=== PATIENT | female | born 1950 ===

== ENCOUNTER 2017-03-19 07:41 | Emergency (ER) | payer MEDICARE, MEDICAID ==
[2017-03-19] MEDS ORDERED: Albuterol-Ipratrop 3 mg / 0.5 (3 ml) UD ONE ×2 (08:02→08:25)
[2017-03-19] MEDS ORDERED: Albuterol-Ipratrop 3 mg / 0.5 (3 ml) UD IH STA ×2 (08:09)
[2017-03-19 08:10] VITALS: BP 112/76; TEMP 98.5; O2SAT 99
--- NOTE | 2017-03-19 08:13 | ED PDOC ---
HPI: CCC, URI, Sore Throat Time Seen by Provider: 03/19/17 08:06 Chief Complaint (Nursing): Cough, Cold, Congestion Chief Complaint (Provider): SOB, cough History Per: Patient History/Exam Limitations: no limitations Have you had recent travel within the past 21 days to any of the following countries: [place], [place], [place] or [place]?: No Onset/Duration Of Symptoms: Days (5) Current Symptoms Are (Timing): Still Present Associated Symptoms: Cough, Sputum (white). denies: Fever Severity: Moderate Additional History Per: Patient Additional Complaint(s): The pt is a 65yo female with PMHx of HTN, DM, asthma, presents to the ED for evaluation of cough with productive white sputum for the past 5 days. Pt denies any associated fever and offers no additional medical complaints. Past Medical History Reviewed: Historical Data, Nursing Documentation, Vital Signs Vital Signs: Last Vital Signs Temp 98.5 F 03/19/17 08:21 Pulse 61 03/19/17 08:21 Resp 20 03/19/17 08:21 BP 112/76 03/19/17 08:21 Pulse Ox 99 03/19/17 08:21 - Medical History PMH: Anxiety, Asthma, Diabetes, HTN, Hypercholesterolemia, Hyperlipidemia, Hypothyroidism Denies: HIV, Chronic Kidney Disease - Family History Family History: States: Unknown Family Hx - Home Medications Home Medications: Ambulatory Orders Medication Instructions Recorded ALPRAZolam [Xanax] 0.25 mg PO DAILY 07/30/15 Aspirin [Aspirin Chewable] 81 mg PO DAILY 07/30/15 Bisoprolol [Zebeta] 5 mg PO DAILY 07/30/15 Esomeprazole Magnesium [Nexium] 40 mg PO DAILY 07/30/15 Gabapentin [Neurontin] 600 mg PO BID 07/30/15 Levetiracetam 500 mg PO BID 07/30/15 Levothyroxine Sodium [Levoxyl] 0.088 mg PO DAILY 07/30/15 Pioglitazone [Actos] 30 mg PO DAILY 07/30/15 Rosuvastatin Calcium [Crestor] 10 mg PO HS 07/30/15 Valsartan [Diovan] 160 mg PO DAILY 07/30/15 Zolpidem Tartrate [Zolpidem] 10 mg PO HS 07/30/15 Ciprofloxacin HCl [Cipro] 500 mg PO BID #0 tab 07/31/15 Dicyclomine [Bentyl] 10 mg PO QID #0 cap 07/31/15 Metronidazole [Flagyl] 500 mg PO Q8H #0 tab 07/31/15 Albuterol 0.083% [Albuterol 0.083% 2.5 mg IH Q4 #50 neb 11/10/15 Inhal Jennifer (2.5 mg/3 ml) UD] Albuterol HFA [Ventolin HFA 90 2 puff IH [id number] PRN #0 puff 11/10/15 mcg/actuation (8 g)] Methylprednisolone [Medrol Dose 4 mg PO DAILY #21 mg 11/10/15 Pack (21 tabs)] Albuterol 0.083% [Albuterol 3 ml IH Q8 #1 neb 03/19/17 Sulfate 3 Ml] Azithromycin [Zithromax] 250 mg PO DAILY #6 tab 03/19/17 Non-Formulary 1 ea .ROUTE Q6 #1 ea 03/19/17 predniSONE [predniSONE Tab] 10 mg PO TID #15 tab 03/19/17 - Allergies Allergies/Adverse Reactions: Allergies Allergy/AdvReac Type Severity Reaction Status Date / Time No Known Allergies Allergy Verified 07/30/15 14:27 Review of Systems ROS Statement: Except As Marked, All Systems Reviewed And Found Negative Constitutional: Negative for: Fever Respiratory: Positive for: Cough, Shortness of Breath, Sputum (white) Physical Exam - Reviewed Nursing Documentation Reviewed: Yes Vital Signs Reviewed: Yes - Physical Exam Appears: Positive for: Well, Non-toxic, Uncomfortable Head Exam: Positive for: ATRAUMATIC, NORMAL INSPECTION, NORMOCEPHALIC Skin: Positive for: Normal Color Eye Exam: Positive for: Normal appearance Neck: Positive for: Normal Cardiovascular/Chest: Positive for: Regular Rate, Rhythm Respiratory: Positive for: Rhonchi (scattered), Wheezing (expitory), Respiratory Distress (mild) Neurologic/Psych: Positive for: Alert, Oriented - Laboratory Results Result Diagrams: 03/19/17 08:18 03/19/17 08:18 - ECG O2 Sat by Pulse Oximetry: 99 (RA) Pulse Ox Interpretation: Normal - Progress Re-evaluation Time: 09:25 Condition: Improved Medical Decision Making Medical Decision Making: Time: 812 Impression: URI Plan: * CMP * CBC * CXR * Duoneb 3 ml INH * Solumedrol 125 mg * Reassess Scribe Attestation: Documented by Becca Sanchez acting as a scribe for Tonny Glass MD. Provider Attestation: All medical record entries made by the Scribe were at my direction and personally dictated by me. I have reviewed the chart and agree that the record accurately reflects my personal performance of the history, physical exam, medical decision making, and the department course for this patient. I have also personally directed, reviewed, and agree with the discharge instructions and disposition. Disposition - Clinical Impression Clinical Impression: Bronchitis - Patient ED Disposition Is Patient to be Admitted: No Counseled Patient/Family Regarding: Studies Performed, Diagnosis, Need For Followup, Rx Given - Disposition Referrals: Anya Hdez MD [Staff Provider] - Disposition: Routine/Home Disposition Time: 09:25 Condition: FAIR Prescriptions: Albuterol 0.083% [Albuterol Sulfate 3 Ml] 3 ml IH Q8 #1 neb Azithromycin [Zithromax] 250 mg PO DAILY #6 tab Non-Formulary 1 ea .ROUTE Q6 #1 ea predniSONE [predniSONE Tab] 10 mg PO TID #15 tab Instructions: Acute Bronchitis (ED)
[2017-03-19 08:27] VITALS: PULSE 61; RESP 20
[2017-03-19 08:39] LABS: BASO % 0.6 % (0.0-2.0); EOS # 0.5 K/uL (0.0-0.7); EOS % 7.7 % (0.0-4.0); HEMATOCRIT 37.8 % (34.0-47.0); LYMPH # 1.7 K/uL (1.0-4.3); LYMPH % 25.7 % (20.0-40.0); MEAN CORPUSCULAR HEMOGLOBIN 30.3 pg (27.0-31.0); MEAN CORPUSCULAR HGB CONC 33.6 g/dL (33.0-37.0); MEAN PLATELET VOLUME 10.3 fl (7.2-11.7); MONO # 0.9 K/uL (0.0-0.8); MONO % 13.2 % (0.0-10.0); NEUT # 3.6 K/uL (1.8-7.0); NEUT % 52.8 % (50.0-75.0); NRBC % 0.2 % (0.0-0.0); RED CELL DISTRIBUTION WIDTH 13.4 % (11.5-14.5); WHITE BLOOD COUNT 6.7 K/uL (4.8-10.8)
[2017-03-19 09:00] LABS: ALB/GLOB RATIO 1.4 (1.0-2.1); ALKALINE PHOSPHATASE 65 U/L (38-126); ALT/SGPT 34 U/L (9-52); AST/SGOT 23 U/L (14-36); BILIRUBIN,TOTAL 0.6 mg/dl (0.2-1.3); BLOOD UREA NITROGEN 25 mg/dl (7-17); CALCIUM 9.8 mg/dL (8.4-10.2); CARBON DIOXIDE 27 mmol/L (22-30); CHLORIDE 104 mmol/L (98-107); GFR AFRICAN-AMERICAN > 60; GLUCOSE,RANDOM 101 mg/dL (65-105); POTASSIUM 3.8 MMOL/L (3.6-5.0); SODIUM 141 mmol/l (132-148); TOTAL PROTEIN 7.8 G/DL (6.3-8.2)
--- NOTE | 2017-03-19 11:28 | RAD ---
HISTORY: cough COMPARISON: Comparison chest 11/10/2015 TECHNIQUE: Chest PA and lateral FINDINGS: LUNGS: No active pulmonary disease. PLEURA: No significant pleural effusion identified. No pneumothorax apparent. CARDIOVASCULAR: Borderline/mild cardiomegaly. OSSEOUS STRUCTURES: Mild multilevel degenerative spondylosis of the thoracic spine VISUALIZED UPPER ABDOMEN: Normal. OTHER FINDINGS: None. IMPRESSION: No active disease.
== END 2017-03-19 09:55 | disposition home or self-care (01) ==
LOC: H.ER 07:41
DX: J20.9 Acute bronchitis, unspecified (principal); E03.9 Hypothyroidism, unspecified; E11.9 Type 2 diabetes mellitus without complications; E78.00 Pure hypercholesterolemia, unspecified; F41.9 Anxiety disorder, unspecified; I10 Essential (primary) hypertension; J45.909 Unspecified asthma, uncomplicated; Z79.82 Long term (current) use of aspirin
CPT/HCPCS: 71020; 80053; 85025; 94150; 94640; 96374; 99283; J2930

== ENCOUNTER 2017-05-21 10:58 | Emergency (ER) | payer MEDICARE, MEDICAID ==
[2017-05-21 11:42] VITALS: BMI 27.6
--- NOTE | 2017-05-21 12:06 | ED PDOC ---
HPI: SOB/CHF/COPD Time Seen by Provider: 05/21/17 11:55 Chief Complaint (Nursing): Chest Pain History Per: Patient Onset/Duration Of Symptoms: Days (2) Current Respiratory Medications: See Home Med List Severity: Mild Associated Symptoms: denies: Fever, Chest Pain, Productive Cough Recently: Treated By A Physician Additional Complaint(s): Referred by PMD to grain oilseed or pasture grower yesterday for swelling lower ext assoc with SOB. Sxs have been ongoing x few weeks. Denies cough or chest pain. No calf pain. Past Medical History Vital Signs: Last Vital Signs Temp 98.2 F 05/21/17 11:40 Pulse 65 05/21/17 11:40 Resp 16 05/21/17 11:40 BP 145/96 H 05/21/17 11:40 Pulse Ox 99 05/21/17 12:07 - Medical History PMH: Anxiety, Asthma, Diabetes, HTN, Hypercholesterolemia, Hyperlipidemia, Hypothyroidism Denies: HIV, Chronic Kidney Disease - Family History Family History: States: Unknown Family Hx - Home Medications Home Medications: Ambulatory Orders Medication Instructions Recorded Alprazolam [Xanax] 0.5 mg PO DAILY PRN 05/21/17 Amlodipine/Valsartan 1 tab PO DAILY 05/21/17 [Amlodipine-Valsartan 5-160 mg] Bisoprolol Fumarate 5 mg PO DAILY 05/21/17 Ergocalciferol (Vitamin D2) 1 tab PO QWK 05/21/17 [Vitamin D2] Esomeprazole Magnesium [Nexium] 40 mg PO DAILY 05/21/17 Furosemide [Lasix] 20 mg PO DAILY 05/21/17 Furosemide [Lasix] 20 mg PO DAILY #3 tablet 05/21/17 Gabapentin [Neurontin] 600 mg PO TID 05/21/17 Levothyroxine [Synthroid] 100 mcg PO DAILY 05/21/17 Naproxen [Naprosyn] 500 mg PO Q12H #20 tab 05/21/17 Pioglitazone [Actos] 30 mg PO DAILY 05/21/17 Zolpidem [Ambien] 10 mg PO HS 05/21/17 - Allergies Allergies/Adverse Reactions: Allergies Allergy/AdvReac Type Severity Reaction Status Date / Time No Known Allergies Allergy Verified 07/30/15 14:27 Review of Systems ROS Statement: Except As Marked, All Systems Reviewed And Found Negative Cardiovascular: Negative for: Chest Pain Respiratory: Positive for: Shortness of Breath. Negative for: Cough Musculoskeletal: Positive for: Other (Swelling lower exts bilat.) Physical Exam - Reviewed Nursing Documentation Reviewed: Yes Vital Signs Reviewed: Yes - Physical Exam Appears: Positive for: Non-toxic, No Acute Distress Head Exam: Positive for: ATRAUMATIC, NORMAL INSPECTION, NORMOCEPHALIC Skin: Positive for: Normal Color, Warm, DRY Eye Exam: Positive for: EOMI, Normal appearance, PERRL ENT: Positive for: Normal ENT Inspection Neck: Positive for: Normal, Painless ROM Cardiovascular/Chest: Positive for: Regular Rate, Rhythm Respiratory: Positive for: CNT, Normal Breath Sounds Gastrointestinal/Abdominal: Positive for: Normal Exam, Bowel Sounds, Soft Back: Positive for: Normal Inspection Extremity: Positive for: Normal ROM, Pedal Edema (?1+ nonpitting edema bilat). Negative for: Calf Tenderness Neurologic/Psych: Positive for: Alert, Oriented - Laboratory Results Result Diagrams: 05/21/17 12:20 05/21/17 12:20 - ECG O2 Sat by Pulse Oximetry: 99 Disposition - Clinical Impression Clinical Impression: Edema extremities, Arthritis - Patient ED Disposition Is Patient to be Admitted: No - Disposition Referrals: Trevin Ramirez, SARITA, PRIMER PRESS OPERATOR [Advanced Practice Nurse] - Disposition: Routine/Home Disposition Time: 13:24 Condition: FAIR Prescriptions: Furosemide [Lasix] 20 mg PO DAILY #3 tablet Naproxen [Naprosyn] 500 mg PO Q12H #20 tab Instructions: Leg Edema (ED), Osteoarthritis (ED) Forms: [employer] (French)
[2017-05-21 12:25] LABS: BASO % 0.8 % (0.0-2.0); EOS # 0.5 K/uL (0.0-0.7); EOS % 9.1 % (0.0-4.0); HEMATOCRIT 40.2 % (34.0-47.0); LYMPH # 1.6 K/uL (1.0-4.3); LYMPH % 31.1 % (20.0-40.0); MEAN CORPUSCULAR HEMOGLOBIN 29.9 pg (27.0-31.0); MEAN CORPUSCULAR HGB CONC 32.8 g/dL (33.0-37.0); MEAN PLATELET VOLUME 10.2 fl (7.2-11.7); MONO # 0.6 K/uL (0.0-0.8); MONO % 12.4 % (0.0-10.0); NEUT # 2.3 K/uL (1.8-7.0); NEUT % 46.6 % (50.0-75.0); NRBC % 0.1 % (0.0-0.0); RED CELL DISTRIBUTION WIDTH 13.7 % (11.5-14.5)
[2017-05-21 12:34] LABS: ALB/GLOB RATIO 1.5 (1.0-2.1); ALKALINE PHOSPHATASE 57 U/L (38-126); ALT/SGPT 36 U/L (9-52); AST/SGOT 24 U/L (14-36); BILIRUBIN,TOTAL 0.4 mg/dl (0.2-1.3); BLOOD UREA NITROGEN 19 mg/dl (7-17); CALCIUM 9.9 mg/dL (8.4-10.2); CARBON DIOXIDE 28 mmol/L (22-30); CHLORIDE 106 mmol/L (98-107); GFR AFRICAN-AMERICAN > 60; GLUCOSE,RANDOM 146 mg/dL (65-105); SODIUM 142 mmol/l (132-148); TOTAL PROTEIN 7.3 G/DL (6.3-8.2)
[2017-05-21 14:45] VITALS: BP 122/78; PULSE 79; RESP 17; TEMP 96.7; O2SAT 98
--- NOTE | 2017-05-21 15:06 | RAD ---
HISTORY: SOB COMPARISON: No prior. TECHNIQUE: Chest PA and lateral FINDINGS: LUNGS: No active pulmonary disease. PLEURA: No significant pleural effusion identified. No pneumothorax apparent. CARDIOVASCULAR: Normal. OSSEOUS STRUCTURES: No significant abnormalities. VISUALIZED UPPER ABDOMEN: Normal. OTHER FINDINGS: None. IMPRESSION: No active disease.
--- NOTE | 2017-05-22 09:44 | RAD ---
HISTORY: pain COMPARISON: No prior FINDINGS: BONES: Normal. No fracture. JOINTS: Normal. No osteoarthritis. SOFT TISSUE: Normal. OTHER FINDINGS: None . IMPRESSION: Normal Bone Xray.
--- NOTE | 2017-05-22 13:18 | CARD ---
APPROVED REPORT EKG Measurement Heart [id number] <Conclusion> Normal sinus rhythm Possible Left atrial enlargement Borderline ECG
== END 2017-05-21 14:45 | disposition home or self-care (01) ==
LOC: H.ER 10:58
DX: R60.0 Localized edema (principal); M19.90 Unspecified osteoarthritis, unspecified site; E03.9 Hypothyroidism, unspecified; E11.9 Type 2 diabetes mellitus without complications; E78.00 Pure hypercholesterolemia, unspecified; F41.9 Anxiety disorder, unspecified; I10 Essential (primary) hypertension

== ENCOUNTER 2018-03-18 16:20 | Observation (INO) | payer MEDICARE, MEDICAID ==
[2018-03-18 16:21] VITALS: BMI 27.6
[2018-03-18] MEDS ORDERED: Sodium Chloride 0.9% 1,000 ML IV STA (16:55)
[2018-03-18] MEDS ORDERED: Famotidine 20mg/50ml 20 MG/50 ML BAG IVPB ONE ×3 (17:15→22:12)
--- NOTE | 2018-03-18 17:22 | ED PDOC ---
HPI: Abdomen Time Seen by Provider: 03/18/18 16:50 Chief Complaint (Nursing): GI Problem Chief Complaint (Provider): GI Problem History Per: Patient History/Exam Limitations: no limitations Onset/Duration Of Symptoms: Days (x3 weeks) Current Symptoms Are (Timing): Still Present Additional Complaint(s): 67 year old female presents to the emergency department complaining of diarrhea , described as loose, watery, at a times containing black or yellow substances, onset three weeks ago. Patient states having five episodes of this nearly daily , making her lose her appetite and feel like she has lost weight. She denies any gross bleeding but does also notes one episode of vomiting with intermittent nausea over the last three weeks. Reports seeing Dr. Ramirez, her PCP, on March 09, who referred her to a GI doctor the same day; he gave her cipro and flagyl to which she states have not helped with her underlying symptoms. Positive reports of intermittent chills, but no fever or sweats. States she has occasional chest pain with pressure, mild shortness of breath, but no palpitations. Also notes mild abdominal discomfort and cramps, but denies urinary changes. No fall, trauma, sick contact, or travel. Today, patient felt as if she was going to pass out, so she contacted her granddaughter who brought her in for further evaluation. No other complaints were noted. pt denied fall/trauma/sick contact, or travel recently PMD: Trevin Ramirez; [facility] GI: Dr Mckenna? Past Medical History Reviewed: Historical Data, Nursing Documentation, Vital Signs Vital Signs: Last Vital Signs Temp 97.9 F 03/18/18 16:29 Pulse 85 03/18/18 16:29 Resp 18 03/18/18 16:29 BP 148/85 03/18/18 16:29 Pulse Ox 100 03/18/18 19:44 - Medical History PMH: Anxiety, Asthma, Diabetes, HTN, Hypercholesterolemia, Hyperlipidemia, Hypothyroidism Denies: HIV, Chronic Kidney Disease - Surgical History Other surgeries: tubal ligation - Family History Family History: States: Unknown Family Hx - Living Arrangements Living Arrangements: Alone (primarily) - Social History Current smoker - smoking cessation education provided: No Ex-Smoker (has not smoked in the last 12 months): No Alcohol: None Drugs: Denies - Home Medications Home Medications: Ambulatory Orders Medication Instructions Recorded Alprazolam [Xanax] 0.5 mg PO DAILY PRN 05/21/17 Amlodipine/Valsartan 1 tab PO DAILY 05/21/17 [Amlodipine-Valsartan 5-160 mg] Bisoprolol Fumarate 5 mg PO DAILY 05/21/17 Ergocalciferol (Vitamin D2) 1 tab PO QWK 05/21/17 [Vitamin D2] Esomeprazole Magnesium [Nexium] 40 mg PO DAILY 05/21/17 Furosemide [Lasix] 20 mg PO DAILY 05/21/17 Furosemide [Lasix] 20 mg PO DAILY #3 tablet 05/21/17 Gabapentin [Neurontin] 600 mg PO TID 05/21/17 Levothyroxine [Synthroid] 100 mcg PO DAILY 05/21/17 Naproxen [Naprosyn] 500 mg PO Q12H #20 tab 05/21/17 Pioglitazone [Actos] 30 mg PO DAILY 05/21/17 Zolpidem [Ambien] 10 mg PO HS 05/21/17 - Allergies Allergies/Adverse Reactions: Allergies Allergy/AdvReac Type Severity Reaction Status Date / Time No Known Allergies Allergy Verified 03/18/18 16:29 Review of Systems ROS Statement: Except As Marked, All Systems Reviewed And Found Negative Constitutional: Positive for: Chills (intermittent), Weight loss (and loss of appetite). Negative for: Fever, Sweats, Other (fall or trauma) ENT: Negative for: Ear Pain Cardiovascular: Positive for: Chest Pain (occasional, with pressure). Negative for: Palpitations Respiratory: Positive for: Shortness of Breath (mild) Gastrointestinal: Positive for: Nausea (intermittent), Vomiting (x1 episode), Abdominal Pain (mild with cramps), Diarrhea (loose, watery, at a times containing black or yellow substances). Negative for: Other (gross bleeding) Genitourinary Female: Negative for: Dysuria, Frequency, Incontinence Musculoskeletal: Negative for: Neck Pain, Back Pain Skin: Negative for: Rash Neurological: Positive for: Weakness, Headache, Dizziness Psych: Negative for: Anxiety, Depression Physical Exam - Reviewed Nursing Documentation Reviewed: Yes Vital Signs Reviewed: Yes (mildly elevated BP) - Physical Exam Comments: General: alert/awake, GCS = 15, oriented x 3, resting in bed, uncomfortable, cooperative, interactive; NAD Head: NC/AT; mild bi-temporal wasting EYE: PERRLA, EOMI, sclera anicteric, no nystagmus, no photophobia; visual field intact b/l Facial: WNL Oral: uvula/tongue are midline, no exudate/lesions, no drooling/stridor, no dysphonia; fair dentitions; mild dry oral mucosa NECK: intact ROM, no midline tenderness, no nuchal rigidity, no meningeal signs ; no step off Chest: CTA b/l, no w/r/r; no tachypenia, no accessory muscle use noted Cardiac: +S1, +S2, no m/r/r, no tachycardia Abdominal: +BS, soft/nd, mild diffuse mid-abd tenderness, well nourished patient ; no masses/rebound/guarding/rigidity; no gunderson's sign, no mcburney's point tenderness Extremities: intact ROM, strength 5/5 grossly intact in all limbs, neurovasc intact b/l; + ambulatory; reflex +2/2; No pitting edema noted b/l BACK: no step off, no midline tenderness, NO crepitus, no gross deformities noted; Intact ROM SKIN: cap refill ~ 1 sec, no ulcerations, no petechiae, no rashes; no gross pallor NEURO: CNII-XII WNL, no facial asymmetries, no slurr speech, oriented x 3 NIH stroke scale ~ 0 Psych: normal insight, normal affect; follows command with ease - Laboratory Results Result Diagrams: 03/18/18 17:40 03/18/18 17:40 Interpretation Of Abnormal: mildly elevated GLUC - ECG ECG: Positive for: Interpreted By Me, Viewed By Me Interpretation Of ECG: NSR at70 bpm, normal axis, no ectopy, non-specific st-t changes, ABNL EKG; unchanged compare with old ekg 04/2017 O2 Sat by Pulse Oximetry: 100 (RA) Pulse Ox Interpretation: Normal - Radiology X-Ray: Interpreted by Me, Viewed By Me, Read By Radiologist - Other Rad Chest XR X-Ray: Interpreted by Me, Viewed By Me X-Ray Interpretation: 18:30 No acute disease. No free air. - Progress ED Course And Treament: 7:05pm - pt is currently comfortable, NAD pt is made aware of her lab tests results pt is awaiting her CT results vital signs remained stable 7:15pm - Pt is endorsed to overnight attending, Dr Oakes, awaiting pt's CT results, pt can be dispositioned accordingly Re-evaluation Time: 19:15 Condition: Improved Medical Decision Making Medical Decision Making: Time: 16:55 Initial Impression: Persistent diarrhea with abdominal pain, r/o colitis / diverticulitis, possible food intolerance, r/o electrolyte derangement Initial Plan: --VBG Shock Panel --Abd/Pelv IV contrast CT --EKG --CMP --Lipase --Trop 1 --CBC with differential --Chest XR --Morphine 4mg IVP --Sodium Chloride 0.9% 1000ml IV --Pepcid 20mg in 50ml --Reglan 10mg IVP --Stool Culture --C Diff Toxin A B --Urinalysis --Observe --Supportive care Scribe Attestation: Documented by Gabrielle Hernandes, acting as a scribe for Jose Gold MD. Provider Scribe Attestation: All medical record entries made by the Scribe were at my direction and personally dictated by me. I have reviewed the chart and agree that the record accurately reflects my personal performance of the history, physical exam, medical decision making, and the department course for this patient. I have also personally directed, reviewed, and agree with the discharge instructions and disposition. Disposition - Clinical Impression Clinical Impression: Diarrhea, Weakness, Dehydration, Malaise and fatigue - Patient ED Disposition Is Patient to be Admitted: Transfer of Care (endorsed to Dr Laisha Oakes) Counseled Patient/Family Regarding: Studies Performed, Diagnosis, Rx Given - Disposition Referrals: Trevin Ramirez, SARITA, CLIENT PORTFOLIO MANAGER [Advanced Practice Nurse] - [email or web address] [place] [Outside] [employer] [Outside] [facility] [Outside] Disposition: Transfer of Care Disposition Time: 19:30 Condition: STABLE Instructions: Weakness (ED) Forms: [facility] (Moroccan) Print Language: TURKMEN
[2018-03-18 17:51] LABS: BASO # 0.1 K/uL (0.0-0.2); EOS # 0.2 K/uL (0.0-0.7); EOS % 2.5 % (0.0-4.0); HEMOGLOBIN 13.8 g/dL (12.0-16.0); LYMPH # 1.2 K/uL (1.0-4.3); LYMPH % 15.8 % (20.0-40.0); MEAN CELL VOLUME 89.6 fl (81.0-99.0); MEAN CORPUSCULAR HGB CONC 33.5 g/dL (33.0-37.0); MEAN PLATELET VOLUME 9.9 fl (7.2-11.7); MONO # 0.6 K/uL (0.0-0.8); MONO % 8.3 % (0.0-10.0); NEUT # 5.5 K/uL (1.8-7.0); NEUT % 72.4 % (50.0-75.0); NRBC % 0.1 % (0.0-0.0); RBC 4.58 Mil/uL (3.80-5.20); RED CELL DISTRIBUTION WIDTH 13.3 % (11.5-14.5); WHITE BLOOD COUNT 7.7 K/uL (4.8-10.8)
[2018-03-18 17:51] LABS: VENOUS BLOOD GAS BASE EXCESS 8.7 mmol/L (0.0-2.0); VENOUS BLOOD GAS PCO2 54 mmHg (40-60); VENOUS BLOOD GAS PO2 28 mm/Hg (30-55); VENOUS BLOOD PH 7.42 (7.32-7.43)
[2018-03-18 17:58] LABS: ALB/GLOB RATIO 1.2 (1.0-2.1); ALBUMIN 4.4 g/dL (3.5-5.0); ALT/SGPT 89 U/L (9-52); AST/SGOT 71 U/L (14-36); BLOOD UREA NITROGEN 19 mg/dl (7-17); CALCIUM 9.6 mg/dL (8.4-10.2); GFR AFRICAN-AMERICAN > 60; GFR NON-AFRICAN AMERICAN > 60; LIPASE 88 U/L (23-300)
[2018-03-18 18:08] LABS: SQUAMOUS EPITHIAL < 1 /hpf (0-5); URINE BILIRUBIN NEGATIVE (NEGATIVE); URINE BLOOD NEGATIVE (NEGATIVE); URINE CLARITY CLEAR (Clear); URINE COLOR STRAW (YELLOW); URINE GLUCOSE (UA) NEG (Normal); URINE LEUKOCYTE ESTERASE TRACE Leu/uL (Negative); URINE PROTEIN NEGATIVE (NEGATIVE); URINE UROBILINOGEN 0.2-1.0 mg/dL (0.2-1.0)
[2018-03-18] MEDS ORDERED: Sodium Chloride 0.9% 50 ML IV ONE (18:25)
[2018-03-18] MEDS ORDERED: Iohexol 300 100 ML IJ ONE (18:25)
--- NOTE | 2018-03-18 19:19 | ED PDOC ---
- Laboratory Results Result Diagrams: 03/18/18 17:40 03/18/18 17:40 - ECG O2 Sat by Pulse Oximetry: 100 (RA) Medical Decision Making Medical Decision Makin:00 Transfer of care endorsed from Dr. Jose Gold to Dr. Jose Enrique Flanagan pending CT results and reevaluation. Time: 19:51 CT Abd/Pelvis FINDINGS: Lower thorax: No pulmonary airspace consolidation or pleural fluid collection in the imaged portion of the thorax. ABDOMEN: Liver: No acute findings. Gallbladder and bile ducts: No acute findings. No radiopaque gallstones or pericholecystic inflammatory changes. No biliary ductal dilation. Pancreas: No acute findings. Spleen: No acute findings. Adrenals: Redemonstrated fluid attenuation left adrenal lesion with peripheral calcification, now measuring 2.3 x 1.8 cm in maximal axial dimensions compared to 2.9 x 2.2 cm on the prior study. The right adrenal gland is normal in appearance. Kidneys and ureters: No acute findings. Stomach and bowel: Moderate amount of fluid in the colon from the cecum through the distal descending colon. The sigmoid colon is essentially nondistended. No colonic wall thickening or pericolonic fat stranding. Redemonstrated colonic diverticulosis without evidence of acute diverticulitis. No evident acute abnormality of the stomach or small bowel. No bowel obstruction. Appendix: The appendix is not identified. No findings suggestive of acute appendicitis. PELVIS: Bladder: No acute findings. Reproductive: No evident acute abnormality of the gynecologic structures. ABDOMEN and PELVIS: Intraperitoneal space: No free intraperitoneal fluid or air. Bones/joints: No acute findings. Soft tissues: Redemonstrated tiny, fat-containing umbilical hernia with no associated complications. Vasculature: No acute findings. No abdominal aortic aneurysm. Lymph nodes: No enlarged abdominal or pelvic lymph nodes by CT criteria. IMPRESSION: 1. A moderate amount of fluid in the colon is consistent with diarrhea. No other evident acute abnormality of the bowel. 2. Interval decreased size of a peripherally calcified, fluid attenuation left adrenal lesion, consistent with a benign entity. 3. Additional redemonstrated and non-acute findings as described above. 21:00 Pt reporting persistent crampy pain and diarrhea as well as weakness. Due to lengthy duration of symptoms and lack of improvements, patient placed on Observation status; D/W Trevin Ramirez at [facility]. DX: dehydration and gastroenteritis. Scribe Attestation: Documented by Gabrielle Hernandes, acting as a scribe for Jose Enrique Flanagan MD. Provider Scribe Attestation: All medical record entries made by the Scribe were at my direction and personally dictated by me. I have reviewed the chart and agree that the record accurately reflects my personal performance of the history, physical exam, medical decision making, and the department course for this patient. I have also personally directed, reviewed, and agree with the discharge instructions and disposition. Disposition Counseled Patient/Family Regarding: Studies Performed, Diagnosis, Need For Followup - Clinical Impression Clinical Impression: Diarrhea, Weakness, Dehydration, Malaise and fatigue - POA Present On Arrival: None - Disposition Disposition: Hospitalized as Observation Patient Disposition Time: 21:00 Condition: FAIR
[2018-03-18] MEDS ORDERED: Ergocalciferol 50,000 Intl Units Cap PO SCH (21:30)
[2018-03-18] MEDS: Lactated Ringer's 1,000 ML IV SCH (22:02)
[2018-03-18] MEDS: Famotidine 20mg/50ml 20 MG/50 ML BAG IVPB SCH (22:18)
[2018-03-19] MEDS: Lactated Ringer's 1,000 ML IV SCH ×2 (06:16→21:32)
[2018-03-19] MEDS: Levothyroxine 100 MCG TAB PO SCH (06:23)
[2018-03-19 07:18] LABS: BASO # 0.1 K/uL (0.0-0.2); BASO % 0.8 % (0.0-2.0); EOS # 0.5 K/uL (0.0-0.7); HEMOGLOBIN 12.8 g/dL (12.0-16.0); LYMPH % 27.3 % (20.0-40.0); MEAN CELL VOLUME 89.9 fl (81.0-99.0); MEAN CORPUSCULAR HEMOGLOBIN 30.3 pg (27.0-31.0); MEAN CORPUSCULAR HGB CONC 33.7 g/dL (33.0-37.0); MEAN PLATELET VOLUME 10.3 fl (7.2-11.7); MONO # 0.8 K/uL (0.0-0.8); MONO % 10.8 % (0.0-10.0); NEUT % 54.1 % (50.0-75.0); NRBC % 0.1 % (0.0-0.0); RBC 4.23 Mil/uL (3.80-5.20); RED CELL DISTRIBUTION WIDTH 13.5 % (11.5-14.5); WHITE BLOOD COUNT 7.5 K/uL (4.8-10.8)
[2018-03-19 07:35] LABS: ALB/GLOB RATIO 1.2 (1.0-2.1); ALT/SGPT 80 U/L (9-52); AST/SGOT 59 U/L (14-36); BLOOD UREA NITROGEN 11 mg/dl (7-17); CALCIUM 9.2 mg/dL (8.4-10.2); GFR AFRICAN-AMERICAN > 60; GFR NON-AFRICAN AMERICAN > 60
[2018-03-19] MEDS ORDERED: Potassium Chloride 20 mEq ER Tab PO ONE (08:15)
[2018-03-19 08:18] VITALS: RESP 18
--- NOTE | 2018-03-19 08:18 | CP.PCM.HP ---
History of Present Illness - History of Present Illness History of Present Illness: pt admitted for persistent vomiting and fatigue, no f/c, + n/v/d. no pain. bw noted. k repletement ordered, pt was tx outpt for colitis w/ cipro/flagyl. saw dr hector-GI cdiff negative. pt feels weak. clifford small amts of po Present on Admission - Present on Admission Any Indicators Present on Admission: No Review of Systems - Constitutional Constitutional: Fatigue - Gastrointestinal Gastrointestinal: As Per HPI, Abdominal Pain, Diarrhea, Nausea, Vomiting Past Patient History - Past Medical History & Family History Past Medical History?: Yes - Past Social History Smoking Status: Never Smoked - CARDIAC Hx Cardiac Disorders: Yes Hx Hypercholesterolemia: Yes Hx Hypertension: Yes - PULMONARY Hx Respiratory Disorders: Yes Hx Asthma: Yes - NEUROLOGICAL Hx Neurological Disorder: No - HEENT Hx HEENT Problems: No - RENAL Hx Chronic Kidney Disease: No - ENDOCRINE/METABOLIC Hx Endocrine Disorders: Yes Hx Diabetes Mellitus Type 2: Yes Hx Hypothyroidism: Yes - HEMATOLOGICAL/ONCOLOGICAL Hx Blood Disorders: No Hx AIDS: No Hx Human Immunodeficiency Virus (HIV): No - INTEGUMENTARY Hx Dermatological Problems: No - MUSCULOSKELETAL/RHEUMATOLOGICAL Hx Musculoskeletal Disorders: No Hx Falls: No - GASTROINTESTINAL Hx Gastrointestinal Disorders: Yes Other/Comment: recent dx of diverticulitis, H Pylori - GENITOURINARY/GYNECOLOGICAL Hx Genitourinary Disorders: No - PSYCHIATRIC Hx Psychophysiologic Disorder: Yes Hx Anxiety: Yes Hx Substance Use: No - SURGICAL HISTORY Hx Surgeries: Yes Hx Tubal Ligation: Yes - ANESTHESIA Hx Anesthesia: Yes Hx Anesthesia Reactions: No Meds Allergies/Adverse Reactions: Allergies Allergy/AdvReac Type Severity Reaction Status Date / Time No Known Allergies Allergy Verified 03/18/18 16:29 Physical Exam - Constitutional Appears: Well, Non-toxic, No Acute Distress - Head Exam Head Exam: ATRAUMATIC, NORMAL INSPECTION, NORMOCEPHALIC - Eye Exam Eye Exam: EOMI, Normal appearance, PERRL Pupil Exam: NORMAL ACCOMODATION, PERRL - ENT Exam ENT Exam: Mucous Membranes Moist, Normal Exam - Neck Exam Neck exam: Positive for: Normal Inspection - Respiratory Exam Respiratory Exam: Clear to Auscultation Bilateral, NORMAL BREATHING PATTERN - Cardiovascular Exam Cardiovascular Exam: REGULAR RHYTHM, RRR, +S1, +S2 - GI/Abdominal Exam GI & Abdominal Exam: Normal Bowel Sounds, Soft, Tenderness Additional comments: ruq tenderness - Extremities Exam Extremities exam: Positive for: full ROM, normal capillary refill, normal inspection, pedal pulses present - Back Exam Back exam: NORMAL INSPECTION - Neurological Exam Neurological exam: Alert, CN II-XII Intact, Normal Gait, Oriented x3, Reflexes Normal - Psychiatric Exam Psychiatric exam: Normal Affect, Normal Mood - Skin Skin Exam: Dry, Intact, Normal Color, Warm Results - Vital Signs Recent Vital Signs: Last Vital Signs Temp 97.6 F 03/18/18 23:28 Pulse 60 03/18/18 23:28 Resp 20 03/18/18 23:28 BP 149/79 03/18/18 23:28 Pulse Ox 100 03/19/18 01:20 - Labs Result Diagrams: 03/19/18 05:30 03/19/18 05:30 Labs: Laboratory Results - last 24 hr 03/18/18 03/18/18 03/18/18 17:00 17:40 17:40 WBC 7.7 D RBC 4.58 Hgb 13.8 Hct 41.1 MCV 89.6 MCH 30.0 MCHC 33.5 RDW 13.3 Plt Count 168 MPV 9.9 Neut % (Auto) 72.4 Lymph % (Auto) 15.8 L [place] % (Auto) 8.3 Eos % (Auto) 2.5 Baso % (Auto) 1.0 Neut # (Auto) 5.5 Lymph # (Auto) 1.2 [place] # (Auto) 0.6 Eos # (Auto) 0.2 Baso # (Auto) 0.1 pO2 28 L VBG pH 7.42 VBG pCO2 54 VBG HCO3 30.5 VBG Total CO2 36.7 H VBG O2 Sat (Calc) 56.6 VBG Base Excess 8.7 H VBG Potassium 3.5 L Sodium 141.0 144 Chloride 104.0 100 Glucose 131 H Lactate 1.2 FiO2 21.0 Potassium 3.6 Carbon Dioxide 29 Anion Gap 19 BUN 19 H Creatinine 0.6 L Est GFR ( Amer) > 60 Est GFR (Non-Af Amer) > 60 POC Glucose (mg/dL) Random Glucose 128 H Calcium 9.6 Total Bilirubin 0.4 AST 71 H D ALT 89 H D Alkaline Phosphatase 81 Troponin I < 0.0120 Total Protein 8.0 Albumin 4.4 Globulin 3.6 Albumin/Globulin Ratio 1.2 Lipase 88 Venous Blood Potassium 3.5 L Urine Color Urine Clarity Urine pH Ur Specific [place] Urine Protein Urine Glucose (UA) Urine Ketones Urine Blood Urine Nitrate Urine Bilirubin Urine Urobilinogen Ur Leukocyte Esterase Urine RBC (Auto) Urine Microscopic WBC Ur Squamous Epith Cells 03/18/18 03/19/18 03/19/18 17:50 05:30 05:30 WBC 7.5 RBC 4.23 Hgb 12.8 Hct 38.1 MCV 89.9 MCH 30.3 MCHC 33.7 RDW 13.5 Plt Count 165 MPV 10.3 Neut % (Auto) 54.1 Lymph % (Auto) 27.3 [place] % (Auto) 10.8 H Eos % (Auto) 7.0 H Baso % (Auto) 0.8 Neut # (Auto) 4.0 Lymph # (Auto) 2.0 [place] # (Auto) 0.8 Eos # (Auto) 0.5 Baso # (Auto) 0.1 pO2 VBG pH VBG pCO2 VBG HCO3 VBG Total CO2 VBG O2 Sat (Calc) VBG Base Excess VBG Potassium Sodium 144 Chloride 100 Glucose Lactate FiO2 Potassium 2.9 L Carbon Dioxide 31 H Anion Gap 16 BUN 11 Creatinine 0.6 L Est GFR ( Amer) > 60 Est GFR (Non-Af Amer) > 60 POC Glucose (mg/dL) Random Glucose 116 H Calcium 9.2 Total Bilirubin 0.5 AST 59 H ALT 80 H Alkaline Phosphatase 74 Troponin I Total Protein 7.3 Albumin 4.0 Globulin 3.3 Albumin/Globulin Ratio 1.2 Lipase Venous Blood Potassium Urine Color Straw Urine Clarity Clear Urine pH 7.0 Ur Specific [place] 1.005 Urine Protein Negative Urine Glucose (UA) Neg Urine Ketones Negative Urine Blood Negative Urine Nitrate Negative Urine Bilirubin Negative Urine Urobilinogen 0.2-1.0 Ur Leukocyte Esterase Trace Urine RBC (Auto) 1 Urine Microscopic WBC 1 Ur Squamous Epith Cells < 1 03/19/18 05:36 WBC RBC Hgb Hct MCV MCH MCHC RDW Plt Count MPV Neut % (Auto) Lymph % (Auto) [place] % (Auto) Eos % (Auto) Baso % (Auto) Neut # (Auto) Lymph # (Auto) [place] # (Auto) Eos # (Auto) Baso # (Auto) pO2 VBG pH VBG pCO2 VBG HCO3 VBG Total CO2 VBG O2 Sat (Calc) VBG Base Excess VBG Potassium Sodium Chloride Glucose Lactate FiO2 Potassium Carbon Dioxide Anion Gap BUN Creatinine Est GFR ( Amer) Est GFR (Non-Af Amer) POC Glucose (mg/dL) 101 Random Glucose Calcium Total Bilirubin AST ALT Alkaline Phosphatase Troponin I Total Protein Albumin Globulin Albumin/Globulin Ratio Lipase Venous Blood Potassium Urine Color Urine Clarity Urine pH Ur Specific [place] Urine Protein Urine Glucose (UA) Urine Ketones Urine Blood Urine Nitrate Urine Bilirubin Urine Urobilinogen Ur Leukocyte Esterase Urine RBC (Auto) Urine Microscopic WBC Ur Squamous Epith Cells Assessment & Plan (1) Colitis Assessment and Plan: gi pt already completed course of anbx po as clifford paina nd nausea control ivf Status: Acute (2) Dehydration Assessment and Plan: lr monitor bw Status: Acute (3) DVT prophylaxis Assessment and Plan: scd nad ae hose ambulation Status: Acute (4) Hypokalemia Assessment and Plan: k replacement monitor bw Status: Acute Decision To Admit - Pt Status Changed To: Hospital Disposition Of: Observation - . Bed Request Type: Med/Surg Admitting Physician: Anya Hdez
--- NOTE | 2018-03-19 08:48 | RAD ---
HISTORY: COMPARISON: 05/21/2017. TECHNIQUE: Chest PA and lateral FINDINGS: LINES AND TUBES: None. LUNG AND PLEURA: The lungs are well inflated and clear. No pleural effusion or pneumothorax. HEART AND MEDIASTINUM: The heart is not enlarged. The hilar and mediastinal contours are within normal limits. SKELETAL STRUCTURES: The bony structures are within normal limits for the patient's age. VISUALIZED UPPER ABDOMEN: Normal. OTHER FINDINGS: None. IMPRESSION: No active pulmonary disease.
[2018-03-19] MEDS ORDERED: VALSARTAN PO SCH (09:00)
[2018-03-19] MEDS ORDERED: AMLODIPINE PO SCH (09:00)
[2018-03-19] MEDS: Famotidine 20mg/50ml 20 MG/50 ML BAG IVPB SCH (09:05)
[2018-03-19] MEDS: Potassium CL 10mEq/100ml 100 ML IVPB SCH ×2 (09:58→13:36)
--- NOTE | 2018-03-19 12:48 | CT ---
PROCEDURE: CT Abdomen and Pelvis with contrast HISTORY: Mid abdominal pain, n/v, persistent diarrhea x 3 weeks COMPARISON: 07/30/2015. TECHNIQUE: CT scan of the abdomen and pelvis was performed after administration of intravenous contrast. Oral contrast was not administered. Coronal and sagittal reformatted images were obtained. Contrast dose: 98 cc Omnipaque 300 Radiation dose: Total exam DLP = 632.32 mGy-cm. This CT exam was performed using one or more of the following dose reduction techniques: Automated exposure control, adjustment of the mA and/or kV according to patient size, and/or use of iterative reconstruction technique. FINDINGS: LOWER THORAX: The visualized lungs are clear. LIVER: The liver is normal in size and there is diffuse fatty infiltration. No gross lesion or ductal dilatation. GALLBLADDER AND BILE DUCTS: No calcified gallstones. PANCREAS: Normal in size with homogeneous enhancement. No gross lesion or ductal dilatation. SPLEEN: Normal in size and appearance. ADRENALS: The right adrenal gland is normal. There is redemonstration of a 2.4 cm low-density mass with peripheral calcification in the lateral limb of the left adrenal gland. KIDNEYS AND URETERS: Normal in size with homogeneous enhancement. No hydronephrosis. No solid mass. VASCULATURE: No aortic aneurysm. BOWEL: The small bowel loops are normal in caliber. There is fluid in the colon with mild dilatation of the ascending and transverse colon. No bowel obstruction. APPENDIX: Normal appendix. PERITONEUM: No free fluid. No free air. LYMPH NODES: No enlarged lymph nodes. BLADDER: Grossly normal in appearance. REPRODUCTIVE: The uterus is normal in size. BONES: No acute fracture. Multilevel degenerative changes in the spine. OTHER FINDINGS: None. IMPRESSION: 1. Fluid in the colon with mild dilatation of the ascending and transverse colon most compatible with nonspecific colitis. No evidence of bowel obstruction. 2. Redemonstration of benign left adrenal mass. A preliminary report was provided by [facility].
--- NOTE | 2018-03-19 14:55 | CARD ---
APPROVED REPORT EKG Measurement Heart [id number] NE 140P47 [id number] <Conclusion> Normal sinus rhythm Possible Left atrial enlargement Nonspecific ST and T wave abnormality Abnormal ECG
[2018-03-20] MEDS: Levothyroxine 100 MCG TAB PO SCH (05:43)
[2018-03-20] MEDS: Lactated Ringer's 1,000 ML IV SCH (06:00)
[2018-03-20 08:24] VITALS: BP 129/73; PULSE 58; TEMP 98.5; O2SAT 96
[2018-03-20 09:22] LABS: BASO # 0.1 K/uL (0.0-0.2); BASO % 0.8 % (0.0-2.0); EOS # 0.4 K/uL (0.0-0.7); EOS % 6.8 % (0.0-4.0); LYMPH % 30.8 % (20.0-40.0); MEAN CELL VOLUME 89.6 fl (81.0-99.0); MEAN CORPUSCULAR HEMOGLOBIN 30.5 pg (27.0-31.0); MEAN PLATELET VOLUME 10.5 fl (7.2-11.7); MONO # 0.6 K/uL (0.0-0.8); MONO % 9.9 % (0.0-10.0); NEUT # 3.4 K/uL (1.8-7.0); NEUT % 51.7 % (50.0-75.0); NRBC % 0.1 % (0.0-0.0); RBC 4.25 Mil/uL (3.80-5.20); RED CELL DISTRIBUTION WIDTH 13.7 % (11.5-14.5); WHITE BLOOD COUNT 6.6 K/uL (4.8-10.8)
--- NOTE | 2018-03-20 09:30 | CP.PCM.PN ---
Subjective - Date & Time of Evaluation Date of Evaluation: 03/20/18 Time of Evaluation: 09:30 Objective - Vital Signs/Intake and Output Vital Signs (last 24 hours): Temp Pulse Resp BP Pulse Ox 98.5 F 58 L 18 129/73 96 03/20/18 08:23 03/20/18 08:23 03/20/18 08:23 03/20/18 08:23 03/20/18 08:23 - Medications Medications: Current Medications Alprazolam (Xanax) 0.5 mg PO DAILY PRN PRN Reason: Anxiety Last Admin: 03/19/18 09:58 Dose: 0.5 mg Amlodipine Besylate (Norvasc) 5 mg PO DAILY [facility] Last Admin: 03/20/18 08:51 Dose: 5 mg Bisoprolol Fumarate (Zebeta) 5 mg PO DAILY [facility] Last Admin: 03/20/18 08:51 Dose: 5 mg Dicyclomine HCl (Bentyl) 20 mg PO TID [facility] Last Admin: 03/20/18 08:47 Dose: 20 mg Ergocalciferol (Drisdol 50,000 Intl Units Cap) 1 cap PO QWK [facility] Famotidine (Pepcid) 20 mg PO Q12 [facility] Last Admin: 03/20/18 08:51 Dose: 20 mg Gabapentin (Neurontin) 600 mg PO TID [facility] Last Admin: 03/20/18 08:48 Dose: Not Given Lactated Ringer's (Lactated Ringer's) 1,000 mls @ 125 mls/hr IV .Q8H [facility] Last Admin: 03/20/18 06:00 Dose: 125 mls/hr Ketorolac Tromethamine (Toradol) 15 mg IVP Q6 PRN PRN Reason: pain 6-10 Levothyroxine Sodium (Synthroid) 100 mcg PO DAILY@0630 [facility] Last Admin: 03/20/18 05:43 Dose: 100 mcg Metoclopramide HCl (Reglan) 10 mg IVP Q6 PRN PRN Reason: Nausea/Vomiting Last Admin: 03/19/18 06:20 Dose: 10 mg Pioglitazone HCl (Actos) 30 mg PO DAILY [facility] Last Admin: 03/20/18 08:47 Dose: 30 mg Valsartan (Diovan) 160 mg PO DAILY [facility] Last Admin: 03/20/18 08:48 Dose: 160 mg Zolpidem Tartrate (Ambien) 5 mg PO HS [facility] Last Admin: 03/19/18 21:31 Dose: 5 mg - Labs Labs: 03/19/18 05:30 03/19/18 05:30 Assessment and Plan (1) Colitis Status: Acute (2) Dehydration Status: Acute (3) DVT prophylaxis Status: Acute (4) Hypokalemia Status: Acute
[2018-03-20 09:39] LABS: ALB/GLOB RATIO 1.2 (1.0-2.1); ALBUMIN 3.8 g/dL (3.5-5.0); ALT/SGPT 71 U/L (9-52); AST/SGOT 50 U/L (14-36); BLOOD UREA NITROGEN 9 mg/dl (7-17); CALCIUM 9.4 mg/dL (8.4-10.2); GFR AFRICAN-AMERICAN > 60; GFR NON-AFRICAN AMERICAN > 60
[2018-03-20] MEDS ORDERED: Potassium Chloride 10 mEq ER Tab PO ONE (09:53)
[2018-03-20] MEDS ORDERED: Potassium CL 10 MEQ/50 ML 50 ML IVPB SCH (10:00)
[2018-03-20] MEDS ORDERED: Potassium Chloride 20 mEq ER Tab PO ONE (10:30)
--- NOTE | 2018-03-20 11:12 | CP.PCM.DIS ---
Provider - Provider Date of Admission: 03/18/18 21:08 Attending physician: Anya Hdez MD Time Spent in preparation of Discharge (in minutes): 15 Diagnosis - Discharge Diagnosis (1) Colitis Status: Acute (2) Dehydration Status: Acute (3) DVT prophylaxis Status: Acute (4) Hypokalemia Status: Acute Hospital Course - Lab Results Lab Results: Most Recent Lab Values WBC 6.6 K/uL (4.8-10.8) 03/20/18 09:14 RBC 4.25 Mil/uL (3.80-5.20) 03/20/18 09:14 Hgb 13.0 g/dL (12.0-16.0) 03/20/18 09:14 Hct 38.1 % (34.0-47.0) 03/20/18 09:14 MCV 89.6 fl (81.0-99.0) 03/20/18 09:14 MCH 30.5 pg (27.0-31.0) 03/20/18 09:14 MCHC 34.0 g/dL (33.0-37.0) 03/20/18 09:14 RDW 13.7 % (11.5-14.5) 03/20/18 09:14 Plt Count 156 K/uL (130-400) 03/20/18 09:14 MPV 10.5 fl (7.2-11.7) 03/20/18 09:14 Neut % (Auto) 51.7 % (50.0-75.0) 03/20/18 09:14 Lymph % (Auto) 30.8 % (20.0-40.0) 03/20/18 09:14 [place] % (Auto) 9.9 % (0.0-10.0) 03/20/18 09:14 Eos % (Auto) 6.8 % (0.0-4.0) H 03/20/18 09:14 Baso % (Auto) 0.8 % (0.0-2.0) 03/20/18 09:14 Neut # (Auto) 3.4 K/uL (1.8-7.0) 03/20/18 09:14 Lymph # (Auto) 2.0 K/uL (1.0-4.3) 03/20/18 09:14 [place] # (Auto) 0.6 K/uL (0.0-0.8) 03/20/18 09:14 Eos # (Auto) 0.4 K/uL (0.0-0.7) 03/20/18 09:14 Baso # (Auto) 0.1 K/uL (0.0-0.2) 03/20/18 09:14 pO2 28 mm/Hg (30-55) L 03/18/18 17:00 VBG pH 7.42 (7.32-7.43) 03/18/18 17:00 VBG pCO2 54 mmHg (40-60) 03/18/18 17:00 VBG HCO3 30.5 mmol/L 03/18/18 17:00 VBG Total CO2 36.7 mmol/L (22-28) H 03/18/18 17:00 VBG O2 Sat (Calc) 56.6 % (40-65) 03/18/18 17:00 VBG Base Excess 8.7 mmol/L (0.0-2.0) H 03/18/18 17:00 VBG Potassium 3.5 mmol/L (3.6-5.2) L 03/18/18 17:00 Sodium 141.0 mmol/L (132-148) 03/18/18 17:00 Chloride 104.0 mmol/L (98-107) 03/18/18 17:00 Glucose 131 mg/dL (65-105) H 03/18/18 17:00 Lactate 1.2 mmol/L (0.7-2.1) 03/18/18 17:00 FiO2 21.0 % 03/18/18 17:00 Sodium 144 mmol/l (132-148) 03/20/18 09:14 Potassium 3.4 MMOL/L (3.6-5.0) L 03/20/18 09:14 Chloride 103 mmol/L (98-107) 03/20/18 09:14 Carbon Dioxide 28 mmol/L (22-30) 03/20/18 09:14 Anion Gap 16 (10-20) 03/20/18 09:14 BUN 9 mg/dl (7-17) 03/20/18 09:14 Creatinine 0.6 mg/dl (0.7-1.2) L 03/20/18 09:14 Est GFR ( Amer) > 60 03/20/18 09:14 Est GFR (Non-Af Amer) > 60 03/20/18 09:14 POC Glucose (mg/dL) 106 mg/dL (65-110) 03/20/18 05:34 Random Glucose 118 mg/dL (65-105) H 03/20/18 09:14 Calcium 9.4 mg/dL (8.4-10.2) 03/20/18 09:14 Total Bilirubin 0.5 mg/dl (0.2-1.3) 03/20/18 09:14 AST 50 U/L (14-36) H 03/20/18 09:14 ALT 71 U/L (9-52) H 03/20/18 09:14 Alkaline Phosphatase 66 U/L (38-126) 03/20/18 09:14 Troponin I < 0.0120 ng/mL (0.00-0.120) 03/18/18 17:40 Total Protein 6.9 G/DL (6.3-8.2) 03/20/18 09:14 Albumin 3.8 g/dL (3.5-5.0) 03/20/18 09:14 Globulin 3.1 gm/dL (2.2-3.9) 03/20/18 09:14 Albumin/Globulin Ratio 1.2 (1.0-2.1) 03/20/18 09:14 Lipase 88 U/L (23-300) 03/18/18 17:40 Venous Blood Potassium 3.5 mmol/L (3.6-5.2) L 03/18/18 17:00 Urine Color Straw (YELLOW) 03/18/18 17:50 Urine Clarity Clear (Clear) 03/18/18 17:50 Urine pH 7.0 (5.0-8.0) 03/18/18 17:50 Ur Specific [place] 1.005 (1.003-1.030) 03/18/18 17:50 Urine Protein Negative mg/dL (NEGATIVE) 03/18/18 17:50 Urine Glucose (UA) Neg mg/dL (Normal) 03/18/18 17:50 Urine Ketones Negative mg/dL (NEGATIVE) 03/18/18 17:50 Urine Blood Negative (NEGATIVE) 03/18/18 17:50 Urine Nitrate Negative (NEGATIVE) 03/18/18 17:50 Urine Bilirubin Negative (NEGATIVE) 03/18/18 17:50 Urine Urobilinogen 0.2-1.0 mg/dL (0.2-1.0) 03/18/18 17:50 Ur Leukocyte Esterase Trace Marv/uL (Negative) 03/18/18 17:50 Urine RBC (Auto) 1 /hpf (0-3) 03/18/18 17:50 Urine Microscopic WBC 1 /hpf (0-5) 03/18/18 17:50 Ur Squamous Epith Cells < 1 /hpf (0-5) 03/18/18 17:50 C. difficile Ag & Toxin Negative (NEGATIVE) 03/18/18 Unknown - Hospital Course Hospital Course: ivf po as clifford k repletement gi bentyl Discharge Exam - Head Exam Head Exam: ATRAUMATIC, NORMAL INSPECTION, NORMOCEPHALIC - Eye Exam Eye Exam: EOMI, Normal appearance, PERRL Pupil Exam: NORMAL ACCOMODATION, PERRL - Respiratory Exam Respiratory Exam: Clear to PA & Lateral, NORMAL BREATHING PATTERN, UNREMARKABLE - Cardiovascular Exam Cardiovascular Exam: REGULAR RHYTHM, RRR, +S1, +S2 - GI/Abdominal Exam GI & Abdominal Exam: Normal Bowel Sounds, Soft, Unremarkable - Extremities Exam Extremities exam: full ROM, normal capillary refill, normal inspection, pedal pulses present - Back Exam Back exam: FULL ROM - Neurological Exam Neurological exam: Alert, CN II-XII Intact, Normal Gait, Oriented x3, Reflexes Normal - Psychiatric Exam Psychiatric exam: Normal Affect, Normal Mood - Skin Skin Exam: Dry, Intact, Normal Color, Warm Discharge Plan - Follow Up Plan Condition: FAIR Disposition: HOME/ ROUTINE Instructions: Diarrhea in Adolescents and Adults, Dehydration, Adult (DC) Additional Instructions: pt doign well. no f/c, n/v/d. states stool is darker, cleared by gi for dc. pt hax outpt colonscopy scheduled w/in 1-2 wks. bw noted. kdur given prior to dc. will recheck labs when pt f/u in office f/u pcp 2 days, rted prn, meds per med rec fianl dx-diarrhea, dehydration, hypokalemia, colitis-resolving Referrals: [facility] [Outside] [employer] [place] [Outside] [facility] [place] [Outside] Trevin Ramirez, DNP, [facility] [Advanced Practice Nurse] -
--- NOTE | 2018-03-21 05:33 | CON ---
DATE: 03/19/2018 REFERRING DOCTOR: Dr. Ramirez. REASON FOR CONSULTATION: Diarrhea and abdominal discomfort. HISTORY OF PRESENT ILLNESS: This is a 67-year-old female well known to my office, who I saw recently for identical complaints. Comes in for diarrhea for sometime. She is afraid to eat as every time she eats she goes to the bathroom. Currently lying in bed comfortable, no apparent distress. Denies fevers, chills, nausea and vomiting. C. diff is also negative. PAST MEDICAL HISTORY: As above. PAST SURGICAL HISTORY: As above. MEDICATIONS: Have been reviewed. REVIEW OF SYSTEMS: All other systems have been reviewed and negative apart from the HPI. PHYSICAL EXAMINATION GENERAL: A pleasant elderly looking female lying in bed comfortably and in no apparent distress. VITAL SIGNS: In the hospital are grossly unremarkable. HEENT: Head is normocephalic and atraumatic. Eyes; pupils are equally reactive to light bilaterally. No conjunctival pallor or icterus. NECK: Supple. Normal range of motion. No lymphadenopathy appreciated. LUNGS: Coarse breath sounds bilaterally. HEART: S1 and S2, regular rate and rhythm. No murmurs appreciated. ABDOMEN: Soft and nontender. Bowel sounds are present. No rebound. No guarding. RECTAL: Deferred. EXTREMITIES: Pulses felt bilaterally. SKIN: Warm, dry and intact. NEUROLOGIC: A and O x3. LABORATORY DATA: All labs and radiology have been reviewed. WBC 7.5, hemoglobin 12.8, hematocrit of 38. AST and ALT 59/80. CAT scan shows some diarrheal illness. ASSESSMENT AND PLAN: This is a 67-year-old female with diarrhea. Differential included but not limited to gastroenteritis versus microscopic colitis versus most likely irritable bowel syndrome. Has scheduled appointment for endoscopy, colonoscopy as an outpatient. For now, we will consider trial of Bentyl and/or Imodium, advance diet as tolerated, discharge planning. Thank you for the consult. Chaparro Bush MD/ PhD cc:
== END 2018-03-20 11:09 | disposition home or self-care (01) ==
LOC: H.ER 16:20 → H.ERHOLD 21:08 → H.MEDSURG1 23:05
PROVIDERS: ADMIT Family Medicine; ATTEND Family Medicine
DX: E86.0 Dehydration (principal); E87.6 Hypokalemia; K52.9 Noninfective gastroenteritis and colitis, unspecified; I10 Essential (primary) hypertension; J45.909 Unspecified asthma, uncomplicated; Z98.51 Tubal ligation status; F41.9 Anxiety disorder, unspecified; F45.9 Somatoform disorder, unspecified; Z79.84 Long term (current) use of oral hypoglycemic drugs; Z79.899 Other long term (current) drug therapy; R07.9 Chest pain, unspecified; R68.83 Chills (without fever); E03.9 Hypothyroidism, unspecified; E11.9 Type 2 diabetes mellitus without complications; E27.9 Disorder of adrenal gland, unspecified; E78.00 Pure hypercholesterolemia, unspecified; E78.5 Hyperlipidemia, unspecified
CPT/HCPCS: 36415; 71046; 74177; 80053; 81003; 82803; 82948; 83690; 84484; 85025; 87045; 87230; 93005; 96360; 96361; 96365; 96374; 99285; G0378; J2270; J2765; J3480; J7040; J7120; Q9967

== ENCOUNTER 2018-11-14 12:03 | Emergency (ER) | payer MEDICARE, MEDICAID ==
[2018-11-14 12:03] VITALS: BMI 27.6
[2018-11-14 12:33] VITALS: RESP 18
[2018-11-14] MEDS ORDERED: Sodium Chloride 0.9% 1,000 ML IV STA (12:40)
[2018-11-14] MEDS ORDERED: Albuterol-Ipratrop 3 mg / 0.5 (3 ml) UD INH STA (12:48)
[2018-11-14] MEDS ORDERED: Albuterol-Ipratrop 3 mg / 0.5 (3 ml) UD ONE (13:11)
--- NOTE | 2018-11-14 13:14 | RAD ---
Date of service: 11/14/2018 HISTORY: chest pain/ r/o infiltrate COMPARISON: 03/18/2018 TECHNIQUE: Chest PA and lateral FINDINGS: LUNGS: No active pulmonary disease. PLEURA: No significant pleural effusion identified. No pneumothorax apparent. CARDIOVASCULAR: No aortic atherosclerotic calcification present. Normal cardiac size. No pulmonary vascular congestion. OSSEOUS STRUCTURES: No significant abnormalities. VISUALIZED UPPER ABDOMEN: Normal. OTHER FINDINGS: None. IMPRESSION: No active disease.
[2018-11-14 13:20] LABS: BASO % 0.8 % (0.0-2.0); EOS # 0.2 K/uL (0.0-0.7); EOS % 4.7 % (0.0-4.0); HEMOGLOBIN 13.5 g/dL (12.0-16.0); LYMPH # 0.6 K/uL (1.0-4.3); LYMPH % 11.9 % (20.0-40.0); MEAN CELL VOLUME 91.9 fl (81.0-99.0); MEAN CORPUSCULAR HEMOGLOBIN 30.6 pg (27.0-31.0); MEAN CORPUSCULAR HGB CONC 33.3 g/dL (33.0-37.0); MEAN PLATELET VOLUME 10.3 fl (7.2-11.7); MONO # 0.8 K/uL (0.0-0.8); MONO % 15.2 % (0.0-10.0); NEUT # 3.4 K/uL (1.8-7.0); NEUT % 67.4 % (50.0-75.0); NRBC % 0.1 % (0.0-0.0); RBC 4.42 Mil/uL (3.80-5.20); RED CELL DISTRIBUTION WIDTH 13.9 % (11.5-14.5); WHITE BLOOD COUNT 5.1 K/uL (4.8-10.8)
[2018-11-14 13:29] LABS: BLOOD UREA NITROGEN 17 mg/dl (7-17); CALCIUM 9.8 mg/dL (8.4-10.2); GFR NON-AFRICAN AMERICAN > 60
[2018-11-14 13:31] LABS: ALB/GLOB RATIO 1.3 (1.0-2.1); ALBUMIN 4.9 g/dL (3.5-5.0); ALT/SGPT 24 U/L (9-52); AST/SGOT 37 U/L (14-36)
[2018-11-14 13:41] LABS: B-TYPE NATRIURETIC PEPTIDE 84.4 pg/ml (0-900)
--- NOTE | 2018-11-14 14:50 | ED PDOC ---
History of Present Illness History of Present Illness: 68yo female with history of asthma, hypertension, diabetes, hypothyroidsm, comes to ER reporting cough, fever, sore throat, headache and bodyaches x 2 days. Patient states she had (+) sick contact as her grandson is sick with the flu. She reports mild dyspnea and coughing but denies any lethargy; patient also denies any GI symptoms. No additional complaints. PMD: Trevin Ramirez HPI: Influenza Time Seen by Provider: 11/14/18 12:39 Chief Complaint: Flu-like Symptoms Chief Complaint (Provider): Flu like symptoms History Per: Patient Exam Limitations: no limitations Have you had recent travel within the past 21 days to any of: No Onset/Duration Of Symptoms: Days Symptoms include: fever, headache, bodyaches, sore throat, cough Sick Contacts (Context): Family Member(s) Risk factors for flu complications: Yes: adult > 65 years Past Medical History Reviewed: Historical Data, Nursing Documentation, Vital Signs Vital Signs: Last Vital Signs Temp 100.8 F H 11/14/18 13:11 Pulse 98 H 11/14/18 12:29 Resp 18 11/14/18 12:29 BP 153/84 H 11/14/18 12:29 Pulse Ox 98 11/14/18 12:29 - Medical History PMH: Anxiety, Asthma, Diabetes, HTN, Hypercholesterolemia, Hyperlipidemia, Hypothyroidism Denies: HIV, Chronic Kidney Disease - Surgical History Surgical History: No Surg Hx - Family History Family History: States: No Known Family Hx - Living Arrangements Living Arrangements: With Family - Home Medications Home Medications: Ambulatory Orders Medication Instructions Recorded Ergocalciferol (Vitamin D2) 1 tab PO QWK 05/21/17 [Vitamin D2] Esomeprazole Magnesium [Nexium] 40 mg PO DAILY 05/21/17 Furosemide [Lasix] 20 mg PO DAILY 05/21/17 Gabapentin [Neurontin] 600 mg PO TID 05/21/17 Levothyroxine [Synthroid] 100 mcg PO DAILY 05/21/17 Pioglitazone [Actos] 45 mg PO DAILY 05/21/17 Zolpidem [Ambien] 10 mg PO HS 05/21/17 Alprazolam [Xanax] 0.25 mg PO DAILY 03/18/18 Aspirin [Aspirin Chewable] 81 mg PO DAILY 03/18/18 Chlorthalidone [Hygroton] 25 mg PO DAILY 03/18/18 Diclofenac Sodium [Voltaren] 50 mg PO DAILY 03/18/18 Latanoprost 2.5 ml OP DAILY 03/18/18 Valsartan/Hydrochlorothiazide 1 each PO DAILY 03/18/18 [Diovan Hct 160-25 mg Tablet] tiZANidine [Zanaflex] 4 mg PO DAILY 03/18/18 Albuterol 0.083% [Albuterol 0.083% 2.5 mg IH Q4 PRN #20 neb 11/14/18 Inhal Jennifer (2.5 mg/3 ml) UD] Albuterol HFA [Ventolin HFA 90 1 - 2 puff IH Q4 PRN #1 inhaler 11/14/18 mcg/actuation (8 g)] Ibuprofen [Motrin Tab] 600 mg PO Q6 PRN #15 tab 11/14/18 Oseltamivir Cap [Tamiflu] 75 mg PO BID #10 cap 11/14/18 Prednisone 50 mg PO DAILY #4 tab 11/14/18 - Allergies Allergies/Adverse Reactions: Allergies Allergy/AdvReac Type Severity Reaction Status Date / Time No Known Allergies Allergy Verified 03/18/18 16:29 Review of Systems ROS Statement: Except As Marked, All Systems Reviewed And Found Negative Constitutional: Positive for: Fever, Chills, Malaise, Other (bodyaches) Respiratory: Positive for: Cough, Shortness of Breath Gastrointestinal: Negative for: Nausea, Vomiting, Abdominal Pain, Diarrhea Neurological: Positive for: Headache. Negative for: Weakness, Numbness Physical Exam - Reviewed Nursing Documentation Reviewed: Yes Vital Signs Reviewed: Yes - Physical Exam Appears: Positive for: Non-toxic, No Acute Distress Head Exam: Positive for: ATRAUMATIC, NORMAL INSPECTION, NORMOCEPHALIC Skin: Positive for: Normal Color, Warm, DRY Eye Exam: Positive for: Normal appearance, EOMI, PERRL ENT: Positive for: TM Is/Are (clear bilaterally), Pharyngeal Erythema. Negative for: Tonsillar Exudate, Tonsillar Swelling Neck: Positive for: Normal, Painless ROM, Supple Cardiovascular/Chest: Positive for: Regular Rate, Rhythm Respiratory: Positive for: Wheezing (trace bilateral wheezing), Other (good air entry). Negative for: Rales, Rhonchi, Respiratory Distress Gastrointestinal/Abdominal: Positive for: Normal Exam, Soft Back: Positive for: Normal Inspection Extremity: Positive for: Normal ROM. Negative for: Pedal Edema Neurologic/Psych: Positive for: Alert, Oriented. Negative for: Motor/Sensory Deficits Medical Decision Making Medical Decision [place] female with flu like illness Given positive sick contact, will start empiric treatment with Tamiflu Plan: -- Tamiflu 75mg PO -- Tylenol 650mg PO -- Solumedrol 60mg IV -- Duoneb 3ml INH -- Labs -- Chest x-ray 1300 Chest x-ray FINDINGS: LUNGS: No active pulmonary disease. PLEURA: No significant pleural effusion identified. No pneumothorax apparent. CARDIOVASCULAR: No aortic atherosclerotic calcification present. Normal cardiac size. No pulmonary vascular congestion. OSSEOUS STRUCTURES: No significant abnormalities. VISUALIZED UPPER ABDOMEN: Normal. OTHER FINDINGS: None. IMPRESSION: No active disease. 1446 On reevaluation, patient appears improved. Heart rate is 98, sinus rhythm and patient's o2 saturation is 97% on room air. d/w Sarah Ramirez NP will see pt tomorrow am for re-eval. ------ Scribe Attestation: Documented by Becca Sanchez acting as a scribe for Chaparro Bernal DO Provider Attestation: All medical record entries made by the Scribe were at my direction and per sonally dictated by me. I have reviewed the chart and agree that the record accurately reflects my personal performance of the history, physical exam, medical decision making, and the department course for this patient. I have also personally directed, reviewed, and agree with the discharge instructions and disposition. - Laboratory Results Result Diagrams: 11/14/18 13:10 11/14/18 13:10 Lab Results: Troponin I < 0.0120 ng/mL (0.00-0.120) 11/14/18 13:10 NT-Pro-B Natriuret Pep 84.4 pg/ml (0-900) 11/14/18 13:10 Total Bilirubin 0.9 mg/dl (0.2-1.3) 11/14/18 13:10 AST 37 U/L (14-36) H D 11/14/18 13:10 ALT 24 U/L (9-52) 11/14/18 13:10 Alkaline Phosphatase 68 U/L (38-126) 11/14/18 13:10 Total Protein 8.7 G/DL (6.3-8.2) H 11/14/18 13:10 Albumin 4.9 g/dL (3.5-5.0) 11/14/18 13:10 Globulin 3.8 gm/dL (2.2-3.9) 11/14/18 13:10 Albumin/Globulin Ratio 1.3 (1.0-2.1) 11/14/18 13:10 - ECG O2 Sat by Pulse Oximetry: 98 Disposition - Clinical Impression Clinical Impression: Influenza-like symptoms - Patient ED Disposition Is Patient to be Admitted: No Counseled Patient/Family Regarding: Studies Performed, Diagnosis, Need For Followup, Rx Given - Disposition Referrals: Anya Hdez MD [Staff Provider] - Disposition: Routine/Home Disposition Time: 16:45 Condition: STABLE Additional Instructions: Return to ER for any worse or new symptoms. Take medications as directed. Prescriptions: Albuterol 0.083% [Albuterol 0.083% Inhal Jennifer (2.5 mg/3 ml) UD] 2.5 mg IH Q4 PRN #20 neb PRN Reason: Wheezing Albuterol HFA [Ventolin HFA 90 mcg/actuation (8 g)] 1 - 2 puff IH Q4 PRN #1 inhaler PRN Reason: Shortness Of Breath Ibuprofen [Motrin Tab] 600 mg PO Q6 PRN #15 tab PRN Reason: Pain, Moderate (4-7) Oseltamivir Cap [Tamiflu] 75 mg PO BID #10 cap Prednisone 50 mg PO DAILY #4 tab Instructions: Flu, Adult (DC) Forms: [employer] (Pashto)
[2018-11-14 16:18] VITALS: TEMP 98.4
[2018-11-14 16:19] VITALS: BP 133/71
[2018-11-14 17:05] VITALS: O2SAT 98
[2018-11-14 18:31] VITALS: PULSE 88
--- NOTE | 2018-11-14 19:37 | CARD ---
APPROVED REPORT Date of service: 11/14/2018 EKG Measurement Heart [id number] <Conclusion> Normal sinus rhythm Possible Left atrial enlargement Nonspecific ST and T wave abnormality Abnormal ECG
== END 2018-11-14 16:56 | disposition home or self-care (01) ==
LOC: H.ER 12:03
DX: J11.1 Influenza due to unidentified influenza virus with other respiratory manifestations (principal); E11.9 Type 2 diabetes mellitus without complications; Z79.899 Other long term (current) drug therapy; J45.909 Unspecified asthma, uncomplicated; I10 Essential (primary) hypertension
CPT/HCPCS: 71046; 80053; 82948; 83880; 84484; 85025; 93005; 94640; 96361; 96374; 99284; J2930; J7030